=== PATIENT | female | born 1985 | race Caucasian/White ===

== ENCOUNTER 2020-09-17 22:14 | Inpatient (IN) | payer OTHER ==
[~2020-09-17] VITALS: Ht 160 cm; Wt 53.2 kg
--- NOTE | 2020-09-17 23:16 | NUR ---
RECIEVED WITH C/O HEAD AND NECK PRESSURE ALONG WITH WHAT'S DESCRIBED PARALIZED HEAD AND NECK ABLE TO WALK SLOWLY WITH ASSISTANCE AND WITHOUT. VITALS STABLE HISTORY OF AUTOIMMUNE DISEASE. WILL CONTINUE TO MONITOR
--- NOTE | 2020-09-18 00:23 | NUR ---
PT OFF OF UNIT TO RADIOLOGY.
[2020-09-18 01:04] LABS: microscopic required? NO
[2020-09-18 01:48] LABS: UA SPECIFIC GRAVITY 1.015 (1.005-1.035); urine erythrocyte NEGATIVE (NEGATIVE)
[2020-09-18 02:01] LABS: PLATELET COUNT 141 x10^3mcL (130-400); RED CELL DISTRIBUTION WIDTH 13.2 % (11.5-14.5)
[2020-09-18 02:05] LABS: CALCIUM 9.2 mg/dL (8.5-10.1); CARBON DIOXIDE 27.3 mmol/L (21-32); CHLORIDE SERUM 105 mmol/L (98-107); CREATININE SERUM 0.5 mg/dL (0.6-1.0); GFR1 > 60 mL/min; GLUCOSE SERUM 103 mg/dL (74-106); POTASSIUM SERUM 3.7 mmol/L (3.5-5.1); SODIUM SERUM 140 mmol/L (136-145)
[2020-09-18 02:11] LABS: ALBUMIN 3.7 g/dL (3.4-5.0); ALKALINE PHOSPHATASE 113 U/L (46-116); ALT/SGPT 24 U/L (14-59); AST/SGOT 19 U/L (15-37); BILIRUBIN TOTAL 0.24 mg/dL (0.20-1.00); HDL CHOLESTEROL 47 mg/dL (40-60); MAGNESIUM 2.2 mg/dL (1.8-2.4); PHOSPHOROUS 3.3 mg/dL (2.5-4.9); TOTAL PROTEIN, SERUM 7.5 g/dL (6.4-8.2)
[2020-09-18 02:13] LABS: CHOLESTEROL 202 mg/dL (<200)
[2020-09-18 02:34] LABS: FREE T4 0.73 ng/dL (0.76-1.46); FREE THYROXINE INDEX 1.8 ug/dL (1.4-4.5); T4(THYROXINE) 6.1 ug/dL (4.7-13.3)
[2020-09-18 02:37] LABS: T3 TOTAL 1.48 ng/mL
--- NOTE | 2020-09-18 03:43 | NUR ---
RESTING WITHOUT COMPLAINT VITALS STABLE. STILL HAS GENERAL WEAKNESS
--- NOTE | 2020-09-18 06:38 | NUR ---
CARRIE SWAB SENT TO LAB PT. TO BE ADMITED PENDING RESULTS. DENIES PAIN OR DISCOMFORT ABLE TO MAKE NEEDS KNOW, CONTINUES WITH GENERAL WEAKNESS
--- NOTE | 2020-09-18 07:30 | NUR ---
ASUMING CARFE OF PT AT THIS TIME. PT AA/OX4. RESP EVEN AND UNLABORED. PT LAYING IN POSITION OF COMFORT. DENIES PAIN AT THIS TIME. PT STS " I HAVE A HEAVY FEELING IN BOTH LEGS. " PT UNABLE TO MOVE TOES BUT CAN LIFT BLE SLIGHTLY OFF THE BED. + DISTAL PULSES. + SENSTATION TO TOUCH. PT ON FULL CM. WITH NSR NOTED. WILL CONT TO MONITOR.
[2020-09-18 08:25] LABS: BASOPHIL % 0.5 % (0-2); PLATELET COUNT 145 x10^3mcL (130-400); RED CELL DISTRIBUTION WIDTH 13.2 % (11.5-14.5)
[2020-09-18 08:29] LABS: CALCIUM 8.6 mg/dL (8.5-10.1); CARBON DIOXIDE 25.2 mmol/L (21-32); CHLORIDE SERUM 105 mmol/L (98-107); CREATININE SERUM 0.5 mg/dL (0.6-1.0); GFR1 > 60 mL/min; GLUCOSE SERUM 99 mg/dL (74-106); PHOSPHOROUS 3.5 mg/dL (2.5-4.9); POTASSIUM SERUM 3.8 mmol/L (3.5-5.1); SODIUM SERUM 140 mmol/L (136-145)
[2020-09-18 10:33] LABS: AMPHETAMINE QUAL UR NONE DETECTED (See below)
--- NOTE | 2020-09-18 11:11 | NUR ---
PT LAYING IN POSITION OF COMFORT. AWAKE AND ALERT. RESP EVEN AND UNLABORED. PT DENIES PAIN AT THIS TIME. PT STILL ON FULL CM. WILL CONT TO MONITOR
--- NOTE | 2020-09-18 12:07 | NUR ---
PT REFUSING LUNCH STS "IM NOT HUNGRY AT THIS TIME." AWARE.
--- NOTE | 2020-09-18 12:24 | NUR ---
CALLED AND SPOKE TO DR MENDES ABOUT PT REQUESTING TO HAVE MOTHER BRING FOOD FROM HOME DUE TO MULITPLE ALLERGIES. PER MD "YES MOTHER CAN BRING FOOD FOR PT." PT INFORMED WAITING MOTHER WITH LUNCH.
--- NOTE | 2020-09-18 13:17 | NUR ---
PT MOTHER BROUGHT FOOD FOR PT AND PT GIVEN FOOD. PT AA/OX4. RESP EVEN AND UNLABORED.
--- NOTE | 2020-09-18 14:32 | NUR ---
[id number] CALLED TO [facility] TO ASSUME CARE OF PT.
--- NOTE | 2020-09-18 14:50 | NUR ---
RECEIVED PT FROM ED [facility] [employer] [facility], CAME IN DUE TO NUMBNESS AND PARALYSIS. AAOX4. DENIES HEADACHE/DIZZINESS. ABLE TO FOLLOW COMMANDS. SPEECH IS CLEAR. RIGHT HAND SAMPLE PREPARATION SUPERVISOR IS WEAKER THAN THE LEFT HAND. NO FACIAL DROOP/ARM DRIFT NOTED. NO SOB NOTED, LUNG SOUNDS CTA. O2 SAT-96%, RA. DENIES ABDOMINAL PAIN/NAUSEA/VOMITING. ABDOMEN IS SOFT AND NON-DISTENDED. STATED THAT SHE HAD HARD STOOLS TODAY. BOWEL SOUNDS ACTIVE. VOIDS. DENIES NUMBESS/TINGLING SENSATION AT THIS TIME. IV SITE PATENT AND INTACT. ENDORSED TO PRIMARY NURSE CALEB FOR CONTINUITY OF CARE
[2020-09-18 15:04] VITALS: BP 118/83
[2020-09-18 15:11] VITALS: Ht 160 cm; Wt 53.2 kg
[2020-09-18 16:47] VITALS: BP 109/75
--- NOTE | 2020-09-18 20:00 | NUR ---
PATIENT RECEIVED AWAKE, ALERT, ORIENTED X4 STANDING IN HER ROOM. RESPIRATION EVEN AND UNLABORED, ON ROOM AIR. SALINE LOCK TO R HAND PATENT AND INTACT. DENIES PAIN AT THIS TIME. C/O CONSTIPATION, LBM 09/18. VOIDING FREELY WITHOUT DIFFICULTY. GENERALIZED WEAKNESS, R HAND DRIP WEAKER THAN L HAND REPAIR TECHNICIAN, SLOW GAIT. SKIN DRY AND INTACT. ON TELE #[id number]. WILL CONTINUE TO MONITOR.
[2020-09-18 20:06] VITALS: BP 124/75
[2020-09-19 04:38] VITALS: BP 108/61
--- NOTE | 2020-09-19 06:27 | NUR ---
PATIENT RESTING IN BED, RESPIRATION EVEN AND UNLABORED, ON ROOM AIR. SALINE LOCK TO R HAND PATENT AND INTACT. DENIES DISCOMFORT/PAIN AT THIS TIME. ASSISTED WITH NEEDS. SAFETY OBSERVED. PLACED BED IN THE LOWEST POSITION. PLACED CALL LIGHT WITHIN REACH AT ALL TIMES.
[2020-09-19 06:55] LABS: BASOPHIL % 0.6 % (0-2); PLATELET COUNT 141 x10^3mcL (130-400); RED CELL DISTRIBUTION WIDTH 13.1 % (11.5-14.5)
--- NOTE | 2020-09-19 07:30 | NUR ---
PATIENT IS A&OX4, FOLLOWS COMMANDS AND COOPERATES WELL. TELE #[id number], NSR, DENIES CHEST PAIN. PERIPHERAL PULSES PALPABLE W/ NO SIGNS OF EDEMA. LUNG SOUNDS CTA BILATERALLY, ON RA, O2 SAT 96%, DENIES SOB. NORMOACTIVE BSX4, ABD SOFT AND FLAT, DENIES ABD PAIN. VOIDS USING RESTROOM. GENERALIZED WEAKNESS WHEN AMBULATING, LEFT SIDED LOWER EXTREMITY IS WEAKER THAN RIGHT SIDE. LEFT UPPER EXTREMITY HAND COMIC BOOK ARTIST IS WEAKER THAN RIGHT. OTHERWISE, DENIES PAIN OR DISCOMFORT AT THIS TIME. SKIN IS CDI. IV SITE IS CDI. WILL CONTINUE TO MONITOR PATIENT.
[2020-09-19 07:33] LABS: CHLORIDE SERUM 105 mmol/L (98-107); CREATININE SERUM 0.5 mg/dL (0.6-1.0); GFR1 > 60 mL/min; GLUCOSE SERUM 89 mg/dL (74-106); POTASSIUM SERUM 3.8 mmol/L (3.5-5.1); SODIUM SERUM 141 mmol/L (136-145)
[2020-09-19 08:26] VITALS: BP 105/68
--- NOTE | 2020-09-19 09:15 | NUR ---
PATIENT WAS SEEN AND ASSESSED BY PHYSICAL THERAPIST. ALL QUESTIONS AND CONCERNS HAVE BEEN ADDRESSED AT THIS TIME. WILL CONTINUE TO MONITOR PATIENT.
--- NOTE | 2020-09-19 10:45 | NUR ---
NOTIFIED PATIENT TAHT PATIENT IS TO BE DISCAHRGED TODAY. PATIENT WANTED TO SPEAK TO CIGARETTE MAKING MACHINE OPERATOR PERTAINING TO MORE QUESTIONS TAHT SHE HAD CONCERNING OUTPATIENT. WILL NOTIFY CIGARETTE MAKING MACHINE OPERATOR.
--- NOTE | 2020-09-19 11:52 | NUR ---
PATIENT IS EXPRESSIN CONCERNED WITH WALKING AT THIS TIME SHE STATES THAT HER GAIT "FEELS DIFFERENT." SHE WAS REQUESTING IF PT CAN PROVIDE WRITTEN OR COPY OF THE PT'S EVAL AND FOR THE PT TO VISIT HER AND CHECK IN WITH HER. HOSPITAL WELLNESS COORDINATOR STATED THAT SHE WILL ORDER A CD TO BE GIVEN TO THE PATIENT CONCERNING HER IMAGING STUDIES. ALL QUESTIONS AND CONCERNS HAVE BEEN ADDRESSED. WILL CONTINUE TO MONITOR PATIENT.
[2020-09-19 12:08] VITALS: BP 99/65
--- NOTE | 2020-09-19 12:37 | NUR ---
PATIENT REQUESTING FOR AN ULTRASOUND OF LOWER EXTREMIETIES. SPOKE TO CASH MANAGEMENT CLERK ABOUT PATIENT'S REQUEST. CASH MANAGEMENT CLERK ORDERED [facility] D[facility]PLER BILATERAL LOWER EXTREMITIES. CASH MANAGEMENT CLERK ALSO ORDERED FOR CD IMAGING REQUEST OF CT HEAD RESULTS WELL. WILL CONTINUE TO MONITOR PATIENT.
[2020-09-19 13:08] VITALS: BP 99/65
--- NOTE | 2020-09-19 15:23 | NUR ---
PATIENT RECEIVED DISCHARGE INSTRUCTIONS. ALL QUESTIONS AND CONCERNS HAVE BEEN ADDRESSED. PATIENT DENEIS ANY PAIN OR DISCOMFORT AT THIS TIME. IV SITE HAS BEEN REMOVED, BUT TELE REMAINS ON PATIENT. PATIENT IS TO BE PICKED UP BY FAMILY AT 1930 OR SO. WILL CONTINUE TO MONITOR PATIENT IN THE MEANTIME AND WILL ENDORSE TO FINANCIAL WELLNESS COACH.
[2020-09-19 17:00] VITALS: BP 107/67
[2020-09-19] MEDS ORDERED: DULOXETINE HYDR30 MG PO (19:29)
[2020-09-19 20:00] VITALS: BP 109/72
--- NOTE | 2020-09-19 20:43 | NUR ---
PATIENT AWAKE,ALERT,AND ORIENTED.SKIN WARM AND DRY TOUCH ,RESPIRATION EVEN AND UNLABORED,NO RESPIRATORY DISTRESS.DENIES PAIN AND DISCOMFORT. CALL LIGHT WITHIN REACH.RECEIVED REPORT FROM OUTGOING NURSE FOR PATIENT DISCHARGE TO HOME WITH ALL DISCHARGE INSTRUCTION GIVEN BY OUTGONG NURSE.PATIENT DISCHARGE D BY WHEELCHAIR VIA PRIVATE CAR ACCOMPANIED BY FAMILY MEMBER MOTHER IN STABLE CONDITION.
== END 2020-09-19 20:37 | disposition home or self-care (01) | DRG 948 ==
LOC: ED 22:14 → DU 09-18 05:25
PROVIDERS: Emergency Medicine; ADMIT Family Medicine; ATTEND Family Medicine
DX: R53.1 Weakness (principal); Z20.828 Contact with and (suspected) exposure to other viral communicable diseases; F41.9 Anxiety disorder, unspecified
CPT/HCPCS: 36600; 84439; G0378